=== PATIENT | female | born 1950 | race Hispanic/Latino ===

== ENCOUNTER 2019-09-21 08:41 | Day surgery (SDC) | payer OTHER ==
[2019-09-21 08:56] LABS: Absolute Lymphocytes (CBC) 1.8 K/uL (0.7-4.9); Basophils % 0.7 % (0-1.3); Hematocrit 32.2 % (36.0-45.0); Lymphocytes % 46.8 % (15.3-44.8); MPV 9.3 fL (7.6-11.3); RBC Red Blood Cell Count 3.29 M/uL (3.86-4.86)
[2019-09-21] MEDS ORDERED: Ringers Lactate 1,000 ML IV ONE ×3 (09:02→09:05)
[2019-09-21] MEDS ORDERED: CEFAZOLIN/SWI 1gm 1 GM/10 ML SYR ONE (09:02)
[2019-09-21] MEDS ORDERED: SCOPOLAMINE HYDROBROMIDE PATCH TD ONE (09:02)
[2019-09-21] MEDS ORDERED: NS 0.9% VIAL 10 ML ONE ×5 (09:04→16:28)
[2019-09-21] MEDS ORDERED: GENTAMICIN SULF 80 MG/2ML INJ ONE (09:04)
[2019-09-21] MEDS ORDERED: Mastisol Adhesive Liq ONE (09:04)
[2019-09-21] MEDS ORDERED: CEFAZOLIN SODIUM 1 GM/VIAL ONE ×2 (09:04→16:28)
[2019-09-21] MEDS ORDERED: BACITRACIN 50000 UNIT VIAL ONE (09:05)
[2019-09-21] MEDS ORDERED: propofoL 200 MG/20 ML VIAL IV ONE ×2 (09:39→11:24)
[2019-09-21] MEDS ORDERED: dexAMETHasone 10 MG/ML VIAL ONE ×2 (09:39→11:24)
[2019-09-21] MEDS ORDERED: MIDAZOLAM HCL 2 MG/2 ML INJ ONE ×2 (09:40→11:24)
[2019-09-21] MEDS ORDERED: ONDANSETRON 4 MG/2 ML VIAL ONE ×2 (09:40→15:26)
[2019-09-21] MEDS ORDERED: LIDOCAINE 1% MPF 5 ML VIAL ONE (09:40)
[2019-09-21] MEDS ORDERED: FENTANYL CITR 250 MCG/5 ML ONE ×2 (09:40→11:24)
[2019-09-21 10:18] LABS: Blood Morphology Comment NOT SEEN (NOT SEEN); Platelet Estimate ADEQ
[2019-09-21] MEDS ORDERED: LIDOCAINE 2% MPF 5 ML VIAL ONE (11:24)
[2019-09-21] MEDS ORDERED: ROCURONIUM 50 MG/5 ML VIAL IV ONE (11:24)
[2019-09-21] MEDS ORDERED: ALBUMIN HUM 5% 250 ML IV ONE (13:04)
[2019-09-21] MEDS ORDERED: MEPERIDINE HCL 25 MG/0.5 ML ONE (16:33)
[2019-09-21] MEDS ORDERED: GLYCOPYRROLATE 0.2 MG/ML SYR ONE (16:43)
[2019-09-21] MEDS ORDERED: NEOSTIGMINE 1 MG/ML -5 ML ONE (16:44)
[2019-09-21] MEDS ORDERED: FENTANYL CITR 100 MCG/2 ML ONE (17:34)
[2019-09-21] MEDS ORDERED: PROMETHAZINE INJ 25 MG/ML AMP ONE (17:34)
[2019-09-21 18:38] VITALS: TEMP 96.9
[2019-09-21 19:11] VITALS: BP 149/73; O2SAT 99
[2019-09-21] MEDS ORDERED: CODEINE 30MG/APAP 300MG TAB ONE (19:19)
--- NOTE | 2019-09-22 00:26 | OP ---
Surgeon: Stephan Montana MD [employer] Spot Picker: Kei. Preoperative Diagnosis: Breast descent. Postoperative Diagnosis: Breast descent. Procedure Performed: Breast lift. Anesthesia: General. Procedure In Detail: After satisfactory induction of general anesthesia, the chest was prepped with DuraPrep, dry sterile drapes applied in the usual manner. A 45 mm template was used to the outline t he right and left areolas. A 15-blade was used to make a skin incision and then transverse curviline ar incision was made. Intervening skin was de-epithelialized with EpiCut or dermabrader. A __ incision was made with electrocautery. Flap was thinned to 1.2 cm cephalad and elevated cephalad towards the clavicle and anterior axillary line, sternum. Both were done simultaneously. Then infer ior incision was made. The epithelialized tissue was formed with a cone using 2-0 PDS sutures at the base of the cone . Straps were elevated at 12 o'clock, 1:30, and 3 o'clock position. The straps were then woven in and out of the pectoralis major muscle, back to the cone, back to pectoral is muscle, back to the cone, sewn in place with 2-0 PDS sutures. This was done for the 12 o'clock, 1 30 straps. The 3 o'clock strap was sewn with the sternum with 2-0 Ethibond sutures. The left side w as done in a mirror-image manner. The wounds were temporarily stapled shut. The patient was sat up. Asymmetries and dog ears were marked. The patient was turned supine, these were resected and the w ound irrigated with antibiotic solution. A 10 NARAYAN drains were brought out the axilla and sewn in plac e with 2-0 silk and the wound was closed with 3-0 Vicryl subcu, 3-0 PDS running subcuticular, tied in the vertical meridian of the breast. The patient was then sat up again, site for new nipple-areolar complex was marked out. Tissue cored out with a 45 mm template. Nipple was delivered, sewn in plac e with interrupted 4-0 PDS followed by 4-0 PDS running subcuticular. Dressings consisted of tincture of benzoin, Steri-Strips, 5 x 5s, fluffs, and Ld wrap. The patient tolerated the procedure well. The amount removed from the right side was 52 g, left side was 52 g. FARHAD/TADEO Voice ID: [id number] Report ID: [id number]
== END 2019-09-21 19:52 | disposition home or self-care (01) ==
LOC: OR 08:41
PROVIDERS: ATTEND Specialist
PROC: 0H0V0ZZ Alteration of Bilateral Breast, Open Approach (ICD-10-PCS; principal; 2019-09-21 09:00)
DX: N64.81 Ptosis of breast (principal)
CPT/HCPCS: 85025; 36415; 88305; 19316; J2704; J2550; J1580; J2250; J3010 ×2; J1100; J2175; P9045; J2710; J0690 ×3; J7120 ×3; J2405